=== PATIENT | female | born 1955 | race Caucasian/White ===

== ENCOUNTER 2017-07-07 12:16 | Day surgery (SDC) | payer BC ==
[2017-07-07] MEDS ORDERED: PROPOFOL 20 ML (13:54)
== END 2017-07-07 16:27 | disposition home or self-care (01) ==
LOC: GIL 12:16
DX: K92.1 Melena (principal); K29.70 Gastritis, unspecified, without bleeding; K44.9 Diaphragmatic hernia without obstruction or gangrene; I10 Essential (primary) hypertension
CPT/HCPCS: 43239; 88305; 88312